=== PATIENT | female | born 1945 ===

== ENCOUNTER → 2024-09-09 09:30 | Outpatient (CLI) | payer OTHER ==
[2024-09-09 11:12] LABS: HEMATOCRIT 33.4 % (36.0-45.00); HEMOGLOBIN 10.9 g/dL (12.0-15.00); MEAN CELL VOLUME 88.6 fL (80.00-100.00); MEAN CORPUSCULAR HGB CONC 32.7 g/dl (32.0-36.0); PLATELET COUNT 270 K/uL (150-450); RED BLOOD COUNT 3.77 M/uL (4.00-6.00); RED CELL DISTRIBUTION WIDTH 13.5 % (11.5-14.5)
[2024-09-09 11:26] LABS: % SATURACION 13.2 % (15-50); ALBUMIN 3.5 gm/dL (3.4-5.0); BILIRUBIN TOTAL 0.37 mg/dL (0.3-1.2); CALCIUM 8.9 mg/dL (8.5-10.1); CREATININE SERUM 1.03 mg/dL (0.55-1.02); FERRITIN 21.7 NG/ML (8-252); GFR 51.82; GLOBULINA 3.1 G/DL (2.4-3.5); POTASSIUM 4.43 mEq/L (3.5-5.1); T4 FREE 1.23 NG/ML (0.76-1.46); TOTAL PROTEIN 6.6 gm/dL (6.4-8.2); TSH 1.03 uIU/mL (0.358-3.74)
[2024-09-09 12:36] LABS: FOLIC ACID 17.18 ng/ml (4.78-20)
[2024-09-09 16:54] LABS: MANUAL PLATELET COUNT 514; PLATELET ESTIMATE NORMAL (NORMAL)
[2024-09-11 06:35] LABS: ANTI THYROID PEROXIDASE < 9 IU/mL (0-34)
[2024-09-11 09:05] LABS: TRANSFERIN 265 mg/dL (192-364)
[2024-09-12 17:05] LABS: PARIETAL CELL ANTIBODIES 4.6 Units (0.0-20.0)
== END | disposition home or self-care (01) ==
LOC: LAB 09:30
PROVIDERS: ATTEND Internal Medicine Hematology & Oncology
DX: C73 Malignant neoplasm of thyroid gland (principal); I10 Essential (primary) hypertension; F33.9 Major depressive disorder, recurrent, unspecified; K29.70 Gastritis, unspecified, without bleeding; D50.8 Other iron deficiency anemias; R79.9 Abnormal finding of blood chemistry, unspecified; R74.02 Elevation of levels of lactic acid dehydrogenase [LDH]; K76.89 Other specified diseases of liver; D55.0 Anemia due to glucose-6-phosphate dehydrogenase [G6PD] deficiency; D51.0 Vitamin B12 deficiency anemia due to intrinsic factor deficiency; E06.3 Autoimmune thyroiditis